=== PATIENT | female | born 1960 | race Caucasian/White ===

== ENCOUNTER 2019-12-06 15:04 | Outpatient (CLI) | payer OTHER, SELFPAY ==
--- NOTE | ~2019-12-06 | MM_ITS ---
EXAMINATION: MM screening anshu BI w tera HISTORY: Screening mammogram TECHNIQUE: Craniocaudal and mediolateral oblique 3-D tomosynthesis images were obtained and synthetic 2-D images were generated. CAD analysis was submitted and interpreted. COMPARISON: Comparison to multiple prior studies sequentially, with oldest reviewed study dated 04/2012. BREAST PARENCHYMAL COMPOSITION: The breasts are heterogeneously dense, which may obscure small masses . FINDINGS: The right breast is stable without evidence for malignancy. There are punctate clustered ca lcifications in the medial aspect of the left breast on CC view. IMPRESSION: 1. Punctate clustered left breast calcifications medially. 2. Magnification views are recommended. BI-RADS Category 0: Incomplete: Needs additional imaging evaluation. Reviewed, dictated and finalized at location A. SMAKER OR TAILOR
== END 2019-12-06 15:05 | disposition home or self-care (01) ==
PROVIDERS: PCP Family Medicine; Visit Provider Obstetrics & Gynecology
DX: Z12.31 Encounter for screening mammogram for malignant neoplasm of breast (principal); R92.8 Other abnormal and inconclusive findings on diagnostic imaging of breast
CPT/HCPCS: 77063; 77067

== ENCOUNTER 2019-12-30 11:50 | Outpatient (CLI) | payer OTHER, SELFPAY ==
--- NOTE | ~2019-12-30 | MM_ITS ---
EXAMINATION: MM diagnostic mammo unilat LT HISTORY: Follow-up left breast calcifications TECHNIQUE: Additional 3-D tomosynthesis images of the left breast were performed and synthetic 2-D im ages were generated. CAD analysis was submitted and interpreted. COMPARISON: 12/06/2019 FINDINGS: Breast composed of scattered areas of fibroglandular density. There are punctate calcificat ions of the left breast which are likely benign. No suspicious cluster of calcifications to suggest m alignancy. No suspicious masses or architectural distortion. IMPRESSION: 1. Probable benign left breast calcifications. 2. Recommend 6 month follow-up diagnostic left mammogram. BI-RADS category 3, probably benign findings. Reviewed, dictated and finalized at location A.
== END 2019-12-30 11:51 | disposition home or self-care (01) ==
LOC: ANHIMG 11:52
PROVIDERS: PCP Family Medicine; Visit Provider Obstetrics & Gynecology
DX: R92.8 Other abnormal and inconclusive findings on diagnostic imaging of breast (principal)
CPT/HCPCS: 77065

== ENCOUNTER 2020-10-23 12:17 | Outpatient (CLI) | payer OTHER, SELFPAY ==
--- NOTE | ~2020-10-23 | MM_ITS ---
EXAMINATION: MM diagnostic anshu BI w tera HISTORY: Follow-up left breast calcifications TECHNIQUE: Additional 3-D tomosynthesis images of the breasts were performed and synthetic 2-D images were generated. CAD analysis was submitted and interpreted. COMPARISON: Comparison to multiple prior studies sequentially, with oldest reviewed study dated 10/23. BREAST PARENCHYMAL COMPOSITION: The breasts are heterogenously dense, which may obscure small masses. FINDINGS: There are punctate clustered calcifications in the outer aspect of both breasts which have a monomorphic benign appearance. No significant interval change. No new masses, calcifications or arc hitectural distortion to suggest malignancy. IMPRESSION: 1. No evidence for malignancy in either breast. Benign breast calcifications. 2. Routine yearly screening mammogram and regular clinical breast examination are recommended. BI-RADS Category 2: Benign finding(s). Reviewed, dictated and finalized at location A. P MACHINE OPERATOR IMPRESSION: 1. No evidence for malignancy in either breast. Benign breast calcifications. 2. Routine yearly screening mammogram and regular clinical breast examination a re recommended. BI-RADS Category 2: Benign finding(s).
== END 2020-10-23 12:18 | disposition home or self-care (01) ==
LOC: ANHIMG 12:19
PROVIDERS: PCP Family Medicine; Visit Provider Obstetrics & Gynecology
DX: R92.8 Other abnormal and inconclusive findings on diagnostic imaging of breast (principal)
CPT/HCPCS: 77062; 77066; G0279

== ENCOUNTER → 2021-11-30 14:47 | Outpatient (CLI) | payer SELFPAY ==
--- NOTE | ~2021-11-30 | XR_ITS ---
XR chest 2V DATE: 11/30/2021 15:08 INDICATION: Chest pain TECHNIQUE: 2 views COMPARISON: None FINDINGS: Normal heart size. No hilar or mediastinal enlargement. No pulmonary infiltrate or consolid ation, pleural effusion or pulmonary vascular congestion or pneumothorax. No right breast shadow is visualized; recommend clinical correlation for possible mastectomy. There is prominent dextroscoliosis of the thoracic spine and levoscoliosis of the lumbar spine. Diffu se osteopenia. IMPRESSION: No active cardiopulmonary disease Reviewed, dictated and finalized at location B. MATIC DRILL OPERATOR
== END ==
PROVIDERS: PCP Family Medicine; Visit Provider Physician Assistant
DX: R07.9 Chest pain, unspecified (principal); R53.83 Other fatigue
CPT/HCPCS: 71046

== ENCOUNTER 2021-12-17 09:34 | Outpatient (CLI) | payer SELFPAY ==
--- NOTE | 2021-12-17 09:46 | EST_ITS ---
Patient Info Name: Cristal Montes Age: 61 years : 1960 Gender: Female Ht: 66 in Wt: 135 lbs BSA: 1.69 m2 Technical Quality: Good Exam Date: 12/17/2021 9:56 AM Exam Location: [facility] Patient Status: Outpatient Admit Date: 12/17/2021 Staff Ordering Physician: Remy Harman PA-C Molded Frames Assembler: Karla Anna RDCS Attending Provider: Referring Physician: Kimani JACOB; Exercise Technologist: Halina Bryant CT Exercise Physician: Jose Manuel DO Exam Type: CA stress echo Study Info Indications R07.9 - Chest pain, unspecified Treadmill exercise stress echocardiogram is performed. Summary 1. 1. Negative Meet exercise stress test for ischemic ST changes by ECG criteria. 2. 2. Good functional capacity, achieving 10 METs of workload. 3. 3. Appropriate HR response to exercise. 4. 4. Appropriate HR recovery at 1 minute post exercise. 5. 5. Negative stress echocardiogram for ischemia by wall motion analysis. 6. 6. Patient informed of the above results. Stress Echo Findings Left Ventricle Appropriate increase in LV endocardial thickening with systole. Appropriate augmentation of contractility with systole. No wall motion abnormality. Left Ventricle Normal LV systolic function, no wall motion abnormality. Protocol: Meet Stress ECG Details Stage: REST Duration (min): 1 min : 10 sec Speed (mph): 0.0 Grade (%): 0 HR (bpm): 65 SBP (mmHg): 110 DBP (mmHg): 73 METS: --- Stage: REST Duration (min): 8 min : 57 sec Speed (mph): 0.0 Grade (%): 0 HR (bpm): 66 SBP (mmHg): 110 DBP (mmHg): 73 METS: --- Stage: STAGE 1 Duration (min): 1 min : 0 sec Speed (mph): 1.7 Grade (%): 10 HR (bpm): 97 SBP (mmHg): 110 DBP (mmHg): 73 METS: --- Stage: STAGE 1 Duration (min): 2 min : 0 sec Speed (mph): 1.7 Grade (%): 10 HR (bpm): 103 SBP (mmHg): 110 DBP (mmHg): 73 METS: --- Stage: STAGE 1 Duration (min): 3 min : 0 sec Speed (mph): 1.7 Grade (%): 10 HR (bpm): 103 SBP (mmHg): 110 DBP (mmHg): 55 METS: --- Stage: STAGE 2 Duration (min): 1 min : 0 sec Speed (mph): 2.5 Grade (%): 12 HR (bpm): 111 SBP (mmHg): 110 DBP (mmHg): 55 METS: --- Stage: STAGE 2 Duration (min): 2 min : 0 sec Speed (mph): 2.5 Grade (%): 12 HR (bpm): 114 SBP (mmHg): 116 DBP (mmHg): 59 METS: --- Stage: STAGE 2 Duration (min): 3 min : 0 sec Speed (mph): 2.5 Grade (%): 12 HR (bpm): 115 SBP (mmHg): 116 DBP (mmHg): 59 METS: --- Stage: STAGE 3 Duration (min): 1 min : 0 sec Speed (mph): 3.4 Grade (%): 14 HR (bpm): 129 SBP (mmHg): 112 DBP (mmHg): 54 METS: --- Stage: STAGE 3 Duration (min): 2 min : 0 sec Speed (mph): 3.4 Grade (%): 14 HR (bpm): 132 SBP (mmHg): 112 DBP (mmHg): 54 METS: --- Stage: STAGE 3 Duration (min): 3 min : 0 sec Speed (mph): 3.4 Grad
== END 2021-12-17 09:35 | disposition home or self-care (01) ==
PROVIDERS: PCP Family Medicine; Visit Provider Physician Assistant
DX: R07.9 Chest pain, unspecified (principal)
CPT/HCPCS: 93351

== ENCOUNTER 2022-01-03 10:52 | Outpatient (CLI) | payer OTHER, SELFPAY ==
--- NOTE | ~2022-01-03 | MM_ITS ---
EXAMINATION: MM screening anshu BI w tera HISTORY: Screening mammogram TECHNIQUE: Craniocaudal and mediolateral oblique 3-D tomosynthesis images were obtained and synthetic 2-D images were generated. CAD analysis was submitted and interpreted. COMPARISON: 10/23/2020 bilateral screening mammogram 12/30/2019 diagnostic left mammogram 12/02/2019, 08/07/2018 bilateral screening mammogram examinations BREAST PARENCHYMAL COMPOSITION: The breasts are heterogeneously dense, which may obscure small masses . FINDINGS: There is no evidence of suspicious mass, calcification, or architectural distortion to sugg est malignancy in either breast. There has been no suspicious interval change. IMPRESSION: 1. No mammographic evidence of malignancy. 2. Recommend routine screening mammography in one year. BI-RADS Category 1: Negative Reviewed, dictated and finalized at location C.
== END 2022-01-03 10:53 | disposition home or self-care (01) ==
PROVIDERS: PCP Family Medicine; Visit Provider Obstetrics & Gynecology
DX: Z12.31 Encounter for screening mammogram for malignant neoplasm of breast (principal)
CPT/HCPCS: 77063; 77067

== ENCOUNTER → 2022-06-25 10:34 | Outpatient (CLI) | payer SELFPAY ==
--- NOTE | ~2022-06-25 | XR_ITS ---
EXAMINATION: XR scoliosis survey DATE: 06/25/2022 11:24 INDICATION: Scoliosis. TECHNIQUE: Frontal and lateral views of the entire spine standing were obtained. COMPARISON: Chest 2 views 11/30/2021 FINDINGS: There are 12 pairs of ribs. There are 5 nonrib-bearing lumbar segments. There is 7 degrees dextrocurvature from C3 to C7 by the Cruz method. There is 23 degrees levoscoliosis from C7 to T6. Th ere is 34 degrees dextroscoliosis from T6 to T10. There is 37 degrees levoscoliosis from T10 to L4. T here is 2 mm anterolisthesis of C4 on C5 and 2 mm retrolisthesis of C5 on C6. There is severe cervica l spondylosis, moderate thoracic spondylosis, and severe lumbar spondylosis. IMPRESSION: 1. Scoliosis. 2. Severe spondylosis. Reviewed, dictated and finalized at location A.
== END ==
PROVIDERS: PCP Internal Medicine
DX: M41.9 Scoliosis, unspecified (principal); M47.896 Other spondylosis, lumbar region
CPT/HCPCS: 72082

== ENCOUNTER 2022-07-04 16:31 | Outpatient (CLI) | payer SELFPAY ==
--- NOTE | ~2022-07-04 | DEXA_ITS ---
Bone Density Report Name: CARLEE AHN Age: 61 Sex: Female Ethnicity: Benjie Date of : 1960 Indication: postmenopausal; screening for osteoporosis; height loss; Referring Provider: REYNA MARTINEZ Study: Bone densitometry was performed. Exam Date: July 04, 2022 Accession number: [id number] Bone Density: Region BMD T-score Z-score Classification AP Spine(L1-L4) 0.828 -2.0 -0.5 Osteopenia Femoral Neck (Left) 0.721 -1.2 0.2 Osteopenia Total Hip (Left) 0.806 -1.1 -0.1 Osteopenia Femoral Neck (Right) 0.703 -1.3 0.0 Osteopenia Total Hip (Right) 0.829 -0.9 0.1 Normal Total Hip Mean 0.818 -1.0 0.0 Normal World Health Organization criteria for BMD impression classify patients as: Normal (T-score at or above -1.0), Osteopenia (T-score between -1.0 and -2.5), or Osteoporosis (T-score at or below -2.5). 10-year Fracture Risk(1): Major Osteoporotic Fracture 7.6% Hip Fracture 0.6% Reported Risk Factors: [place] (), Neck BMD=0.703, BMI=24.0 (1) FRAX(R) Version 3.08. Fracture probability calculated for an untreated patient. Fracture probability may be lower if the patient has received treatment. Clinical Information Provided by Patient: Has used the following medications: Vitamin D, Calcium Patient maximum height was 67 Menopause Age: 50 Drinks caffeinated beverages Onset of menses at age 13 Number of children 2 Impression: The patient has low bone mass, based on the Total Spine T-score. The patient has an estimated ten-year risk of hip fracture of 0.6% and an estimated ten-year risk of major fracture of 7.6%, based on the WHO FRAX algorithm. Discussion: BONE DENSITY IS LOW AT ONE OR MORE SKELETAL SITES. This patient's lowest T-score is low at one or more skeletal sites. It meets the World Health Organization's (WHO) criteria for ?low bone mass? (T-score between -1.0 and -2.5). The patient's 10-year risk of fracture as calculated by FRAX is less than the threshold where pharmacological therapy is recommended by the National Osteoporosis Foundation (NOF). However, all treatment decisions require clinical judgment and consideration of individual patient factors, including patient preferences, comorbidities, previous drug use, risk factors not captured in the FRAX model (e.g., frailty, falls, vitamin D deficiency, increased bone turnover, interval significant decline in bone density) and possible under or overestimation of fracture risk by FRAX. The patient should follow a healthful lifestyle (good nutrition with adequate calcium and vitamin D, and appropriate weight-bearing exercise). Follow-Up: Consider repeating this study in 2 to 3 years to reassess this patient's status, or sooner if there is some new clinical indication. Reported by: [facility] on 07/04/2022 4:59:
== END 2022-07-04 16:32 | disposition home or self-care (01) ==
PROVIDERS: PCP Internal Medicine; Visit Provider Internal Medicine
DX: M85.88 Other specified disorders of bone density and structure, other site (principal); M85.852 Other specified disorders of bone density and structure, left thigh; M85.851 Other specified disorders of bone density and structure, right thigh
CPT/HCPCS: 77080

== ENCOUNTER 2023-01-16 12:17 | Outpatient (CLI) | payer OTHER, SELFPAY ==
--- NOTE | ~2023-01-16 | MMUS_ITS ---
EXAMINATION: MM diagnostic anshu BI w tera, US breast LT limited HISTORY: Left arm hip pain TECHNIQUE: Additional 3-D tomosynthesis images of the breasts were performed and synthetic 2-D images were generated. CAD analysis was submitted and interpreted. High resolution Limited left breast ultr asound was performed. COMPARISON: No prior studies for comparison. BREAST PARENCHYMAL COMPOSITION: The breasts are heterogeneously dense, which may obscure small masses FINDINGS: MAMMOGRAPHIC FINDINGS: There are no suspicious masses, calcifications or architectural distortion in either breast to sugges t malignancy. ULTRASOUND: Limited left breast ultrasound: Normal heterogeneous echotexture without focal solid or cystic mass. IMPRESSION: 1. No evidence for malignancy in either breast. 2. Routine yearly screening mammogram and regular clinical breast examination are recommended. BI-RADS Category 1: Negative Reviewed, dictated and finalized at location A. IMPRESSION: 1. No evidence for malignancy in either breast. 2. Routine yearly screening mammogram and regular clinical breast examination a re recommended. BI-RADS Category 1: Negative
== END 2023-01-16 12:18 | disposition home or self-care (01) ==
PROVIDERS: PCP Internal Medicine; Visit Provider Nurse Practitioner
DX: R59.0 Localized enlarged lymph nodes (principal)
CPT/HCPCS: 76642; 77062; 77066; G0279

== ENCOUNTER → 2023-04-22 12:49 | Outpatient (CLI) | payer SELFPAY ==
--- NOTE | ~2023-04-22 | US_ITS ---
EXAMINATION: US pelvic complete w TV DATE: 04/22/2023 13:15 INDICATION: Abdominal pain and bloating TECHNIQUE: Multiple transabdominal and endovaginal sonographic images of the pelvis were obtained. COMPARISON: 03/06/2018 FINDINGS: The uterus measures 5.8 x 2.1 x 4.0 cm. There is a 1.6 x 1.8 x 1.5 cm isoechoic mass of the anterior myometrium abutting the endometrial canal, consistent with an intramural fibroid. A 0.9 x 0 .8 x 0.9 cm mass of the uterine fundus with similar sonographic features also likely represents an in tramural fibroid. The endometrial complex measures 4 mm. The right ovary measures 1.8 x 1.0 x 1.6 cm. The left ovary measures 2.5 x 1.1 x 1.2 cm. There is normal vascular flow in the ovaries. There is n o free fluid in the pelvis. IMPRESSION: 1. No sonographic correlate for the patient's symptoms. Small uterine fibroids. Reviewed, dictated and finalized at location L.
== END ==
PROVIDERS: PCP Internal Medicine; Visit Provider Internal Medicine
DX: R14.0 Abdominal distension (gaseous) (principal); D25.9 Leiomyoma of uterus, unspecified
CPT/HCPCS: 76830; 76856

== ENCOUNTER 2024-04-14 13:24 | Outpatient (CLI) | payer OTHER, SELFPAY ==
--- NOTE | ~2024-04-14 | MM_ITS ---
EXAMINATION: MM screening anshu BI w tera HISTORY: Screening mammogram TECHNIQUE: Craniocaudal and mediolateral oblique 3-D tomosynthesis images were obtained and synthetic 2-D images were generated. CAD analysis was submitted and interpreted. COMPARISON: 01/16/2023, 01/03/2022, 10/23/2020 BREAST PARENCHYMAL COMPOSITION:Dense: The breasts are heterogeneously dense, which may obscure small masses. FINDINGS: No suspicious mass, calcification, or architectural distortion are identified in either ari ast to suggest malignancy. There has been no suspicious interval change. IMPRESSION: No mammographic evidence of malignancy. Recommend routine screening mammography in one year. BI-RADS Category 1: Negative Reviewed, dictated and finalized at location .
== END 2024-04-14 13:25 | disposition home or self-care (01) ==
LOC: ANHIMG 13:25
PROVIDERS: PCP Internal Medicine; Visit Provider Nurse Practitioner
DX: Z12.31 Encounter for screening mammogram for malignant neoplasm of breast (principal)
CPT/HCPCS: 77063; 77067

== ENCOUNTER 2024-11-25 13:58 | Outpatient (CLI) | payer SELFPAY ==
--- NOTE | ~2024-11-25 | US_ITS ---
EXAMINATION: US thyroid DATE: 11/25/2024 14:25 INDICATION: Thyroid nodule. TECHNIQUE: Multiple ultrasound images of the thyroid were obtained. COMPARISON: None. FINDINGS: The right thyroid lobe measures 4.6 x 1.7 x 1.4 cm. The left thyroid lobe measures 3.8 x 1.7 x 1.7 c m. The thyroid demonstrates heterogeneous echogenicity. Vascularity is increased. In the left thyroi d lobe, there is a 14 mm solid, hypoechoic, wider than tall nodule with smooth margin without echogen ic foci (TI-RADS TR4). IMPRESSION: 1. Thyroid nodule. Thyroid ultrasound is recommended in one year. 2. Heterogeneous, hypervascular thyroid, likely chronic lymphocytic (Jessika) thyroiditis. Reviewed, dictated and finalized at location A. [facility]
== END 2024-11-25 13:59 | disposition home or self-care (01) ==
PROVIDERS: PCP Internal Medicine
DX: E04.1 Nontoxic single thyroid nodule (principal); E07.89 Other specified disorders of thyroid
CPT/HCPCS: 76536

== ENCOUNTER 2025-04-26 14:28 | Outpatient (CLI) | payer OTHER, SELFPAY ==
--- NOTE | ~2025-04-26 | MM_ITS ---
EXAMINATION: MM screening anshu BI w tera HISTORY: Screening TECHNIQUE: Craniocaudal and mediolateral oblique 3-D tomosynthesis images were obtained and synthetic 2-D images were generated. CAD analysis was submitted and interpreted. COMPARISON: Comparison to multiple prior studies sequentially, with oldest reviewed study dated 12/06. BREAST PARENCHYMAL COMPOSITION: Dense: The breasts are heterogeneously dense, which may obscure small masses FINDINGS: There is no evidence of suspicious mass, calcification, or architectural distortion to sugg est malignancy in either breast. There has been no suspicious interval change. IMPRESSION: 1. No mammographic evidence of malignancy. 2. Recommend routine screening mammography in one year. BI-RADS Category 1: Negative Reviewed, dictated and finalized at location B.
--- OUTSIDE RECORDS SUMMARY | 2025-04-26 14:33 | XMS_ITS | Clinical Summary ---
Author Organization [facility] Healthcare Address [address] [place] [address] Care Team Providers Care Executive Director Of Nursing Name Role Phone Neal Galarza NP Unavailable [phone] Olivier Daniels MD Primary Care Provider [phone] Allergies Active Allergy Reactions Criticality Noted Date Comments Cat Hair Standardized Allergenic Extract Swelling Medium 06/23/2023 Codeine Dizziness,Other (See comments),Stomach upset Low 01/02/2018 GI upset Stomach/GI Upset Dizzy, nausea Iodinated Contrast Media Anaphylaxis,Hives,Pa lpitations High 03/29/2011 Rapid heart rate Pt. States she broke out in hives and was unable to breathe when had contrast for CT Scan Hives Medications ascorbic acid, vitamin C, (Vitamin C) 500 mg CR tabletIndicatio ns:supplement Take 1 tablet (500 mg total) by mouth 2 (two) times a day Restart on 05/07 when able to take pills whole 4 Active cholecalciferol (VITAMIN D-3) 50,000 unit capsuleIndicati ons:Vitamin D Deficiency Take 1 capsule (50,000 Units total) by mouth once a week Restart on 05/07 when able to take pills wholeSundays 4 Active magnesium gluconate 200 mg tabletIndicatio ns:hypomagnesem ia Take 1 tablet (200 mg total) by mouth daily Restart on 05/07 when able to take pills whole 4 Active multivitamin with minerals tabletIndicatio ns:Mineral Deficiency Prevention,Rachelle min Deficiency Prevention Take 1 tablet by mouth software engineering associate manager before breakfast Restart on 05/07 when able to take pills whole 4 Active omega-3 fatty acids-fish oil 300-1,000 mg capsuleIndicati ons:hypertrigly ceridemia Take 1 capsule (1,000 mg total) by mouth software engineering associate manager before breakfast Restart on 05/07 when able to take pills whole 4 Active turmeric root extract 500 mg capsuleIndicati ons:supplement Take 1 tablet by mouth software engineering associate manager before breakfast Restart on 05/07 when able to take pills whole 4 Active Active Problems Problem Noted Date Diagnosed Date S/P laparoscopic fundoplication 12/12/2024 Assessment & Plan (12/12/2024 9:56 AM PATHOLOGY LABORATORY DIRECTOR): No breatkhrought sypmtoms on fundoplication. No dysphagia. Dyspnea on exertion 12/12/2024 Assessment & Plan (12/12/2024 9:56 AM PATHOLOGY LABORATORY DIRECTOR): Revuiewed multifacotrial etiology and will montior repsnose. No chest pains/pressures/palptiations. Encounter for medical examination to establish c are 12/12/2024 Assessment & Plan (12/12/2024 9:57 AM PATHOLOGY LABORATORY DIRECTOR): Focus of exam is to estalbihs care. Congratualte on active, healthy fifesltye. Reivewed sun/skin cancer screening. Reivewed immunizioatns, reivewed colon/breast cancer screenign recommnednations. Hiatal hernia with GERD 02/10/2024 Hiatal hernia 08/21/2023 Dysfunction of eustachian tube 06/23/2023 Contusion 06/23/2023 Abrasion 06/23/2023 Eczema 06/23/2023 Fatigue 06/23/2023 Intolerant of cold 06/23/2023 Weight gain 06/23/2023 Personal history of colonic polyps 04/22/2023 Angina pectoris 01/29/2018 Gastroesophageal reflux disease 01/29/2018 Assessment & Plan (12/12/2024 9:56 AM PATHOLOGY LABORATORY DIRECTOR): Stable on supportive and alternative medication to control GI syopmtomatology. Immunizations Immunization Administration Dates Next Due Influenza, Unspecified 11/30/2024(Deferr ed: Patient Refused),10/13/2023(Deferred: Patient Refused) Sars-CoV-2, Unspecified 07/26/2021,01/19/2021, Tdap 12/21/2018,10/12/2018 ZOSTER Recombinant 08/15/2021,05/10/2021 Zoster, unspecified 09/11/2021,07/12/2021 Surgical History Surgery Date Site/Laterality Comments ENDOMETRIAL ABLATION TONSILLECTOMY COLONOSCOPY 02/10/2018 - 03/12/2018 UPPER GASTROINTESTINAL ENDOSCOPY 10/13/2017 - 10/12/2018 ADENOIDECTOMY Medical History Medical History Date Comments GERD (gastroesophageal reflux disease) Angina pectoris Psoriasis (a type of skin inflammation) Hiatal hernia Family History Medical History Relation Name Comments Diabetes Sister Breanna Relation Name Status Comments Sister Breanna Social History Tobacco Use Types Packs/Day Years Used Date Smoking Tobacco: Never Smokeless Tobacco: Never Tobacco Cessation:Counseling Given: Not Answered AUDIT-C Answer Date Recorded Q1: How often do you have a drink containing alc ohol? 2-3 times a week 04/29/2024 Q2: How many drinks containi ng alcohol do you have on a typical day when you are drinking? 1 or 2 04/29/2024 Q3: How often do you have si x or more drinks on one occasion? Never 04/29/2024 PHQ-2 Answer Date Recorded PHQ-2 Total Score (If total score is 3 or more points, staff should administer the PHQ-9) 0 11/30/2024 Personal Safety Answer Date Recorded Have you ever been in or are you currently in a harmful physical or emotional relationship or is someone making you feel afraid or unsafe? Denies 04/29/2024 Comments No Sex and Gender Information Value Date Recorded Sex Assigned at Not on file Legal Sex Female 12:18 PM PATHOLOGY LABORATORY DIRECTOR Gender Identity Not on file Sexual Orientation Not on file Obstetrics History Last Filed Vital Signs Vital Sign Reading Time Taken Comments Blood Pressure 118/74 12/21/2024 4:17 PM CDT Pulse 66 12/21/2024 4:17 PM CDT Temperature 36.6 C (97.8 F) 12/21/2024 4:17 PM CDT Respiratory Rate 17 12/21/2024 4:17 PM CDT Oxygen Saturation 98% 12/21/2024 4:17 PM CDT Inhaled Oxygen Concentration - - Weight 72.1 kg (159 lb) 12/21/2024 4:17 PM CDT Height 167.6 cm (5' 6) 12/21/2024 4:17 PM CDT Body Mass Index 25.66 12/21/2024 4:17 PM CDT Plan of Treatment Health Maintenance Due Date Last Done Comments Cervical Cancer Screening 1960 Hepatitis C Screening 1960 Hepatitis B Screening 1979 Regular Well Visit/Exam 18-64 1979 Breast Cancer Screening-Mammogram 01/03/2023 01/03/2022, 10/23/2020 Covid-19 Vaccine ( season) 2024 08/06/2022, 07/27/2021, 07/26/2021, Additional history exists Influenza Vaccine (#1) 2025 Depression Screening 11/30/2025 11/30/2024 Colon Cancer Screening-Colonoscopy 06/24/2028 06/24/2023, 02/18/2018 DTaP/Tdap/Td Vaccine (3 - Td or Tdap) 12/21/2028 12/21/2018, 10/12/2018 Zoster Vaccine Completed 09/11/2021, 1112/2020, 07/12/2021, Additional history exists Colon Cancer Screening-CT Colonography Discontinued 06/24/2023, 02/18/2018 Colon Cancer Screening-DNA Stool Discontinued 06/24/2023, 02/18/2018 Colon Cancer Screening-FIT Discontinued 06/24/2023, Colon Cancer Screening-Sigmoidoscopy Discontinued 06/24/2023, 02/18/2018 Pneumococcal vaccine <65 Aged Out No longer eligible based on patient's age to complete this topic Procedures Procedure Name Priority Date/Time Associated Diagnosis Comments COLONOSCOPY 06/24/2023 7:45 AM CDT HM MAMMOGRAPHY Routine 01/03/2022 from Last 3 Months or Most Recently Relevant to Health Maintenance Results * COLONOSCOPY (06/24/2023 7:45 AM CDT) Anatomical Region Laterality Modality Other Narrative Procedure Note Henrietta Farley MD - 06/24/2023 7:45 AM CDT [facility] Patient Name: Cristal Montes Procedure Date: 06/24/2023 7:45 AM Date of : 1960 Admit Type: Outpatient Age: 62 Gender: Female Attending MD: Henrietta Farley M.D. Room: [facility] 1 Note Status: Screed Person Override Patient Profile: This is a 62 year old female. History of polypsback in 2018. No family history of colon cancer per Procedure: Colonoscopy Indications: High risk colon cancer surveillance: Personalhistory of colonic polyps, Last colonoscopy: February 2018 Referring MD: Ramya Regan M.D., Heidi Waldrop M.D. Providers: Henrietta Farley M.D. Impression: - One diverticulum in the ascending colon. - Normal colonoscopy otherwise. - Internal hemorrhoids. - No specimens collected. Recommendation: - Repeat colonoscopy in 5 years for screeningpurposes. - Continue present medications. Medicines: Monitored Anesthesia Care Complications: No immediate complications. Estimated Blood Loss: Estimated blood loss: none. Procedure: Pre-Anesthesia Assessment: - Prior to the procedure, a History and Physicalwas performed, and patient medications and allergieswere reviewed. The patient's tolerance of previous anesthesia was also reviewed. The risks andbenefits of the procedure and the sedation options and risks were discussed with the patient. All questions were answered, and informed consent was obtained. Prior Anticoagulants: The patient has taken noanticoagulant or antiplatelet agents. ASA Grade Assessment: II -A patient with mild systemic disease. After reviewing the risks and benefits, the patient was deemed in satisfactory condition to undergo the procedure. The benefits, risks and alternatives of theprocedure and sedation were discussed and informed consentwas obtained. All questions were answered. Please referto the signed informed consent document in the medical record. The bowel preparation used was Miralax and bisacodyl tablets via split dose instruction. The scope was passed under direct vision. The Pediatric Colonoscope [id number]-[id number] was introducedthrough the anus and advanced to the the cecum, identifiedby appendiceal orifice and ileocecal valve. Thequality of the bowel preparation was excellent. Bowel prepwas administered using a split dose. Findings: The perianal and digital rectal examinations were normal. The cecum appeared normal. A single medium-mouthed diverticulum was found in the ascendingcolon. The rectum, sigmoid colon, descending colon and transverse colon appeared normal. Internal hemorrhoids were found during retroflexion. The hemorrhoids were small. Electronically signed by Henrietta Farley M.D. Henrietta Farley M.D. 06/24/2023 9:01:03 AM Number of Addenda: 0 Note Initiated On: 06/24/2023 7:45 AM Procedure Code(s): --- Professional --- 87965, Colonoscopy, flexible; diagnostic, including collection of specimen(s) by brushing or washing, when performed (separateprocedure) Diagnosis Code(s): --- Professional --- Z86.010, Personal history of colonic polyps K64.8, Other hemorrhoids K57.30, Diverticulosis of large intestine without perforation orabscess without bleeding CPT copyright 2020 [employer]. All rights reserved. The codes documented in this report are preliminary and upon enterprise integration architect reviewmay be revised to meet current compliance requirements. Recognized by the [employer] for promoting quality in endoscopy Henrietta Farley MD ENDOSCOPY PROCEDURES Edite d Result - Final * HM MAMMOGRAPHY (01/03/2022) Historical Provider HEALTH MAINTENANCE Final Result from Last 3 Months or Most Recently Relevant to Health Maintenance Advance Directives For more information, please contact: [phone] * Full Code (Latest Code Status on File) Date Activated Date Inactivated Comments 04/29/2024 6:35 PM 04/30/2024 8:33 PM * Full Code Date Activated Date Inactivated Comments 12/16/2023 11:33 AM 12/16/2023 7:08 PM * Full Code Date Activated Date Inactivated Comments 12/16/2023 11:33 AM 12/16/2023 11:33 AM * Full Code Date Activated Date Inactivated Comments 06/24/2023 7:44 AM 06/24/2023 1:54 PM * Full Code Date Activated Date Inactivated Comments 06/24/2023 7:44 AM 06/24/2023 7:44 AM Care Teams Executive Director Of Nursing Relationship Specialty Start Date End Date Olivier Daniels MD Maria [place] [address] PCP - General Family Medicine 11/30/24 Neal Galarza NP [address] [place] [address] [place] [address] Nurse Practitioner Gastroenterology 01/21/24
--- OUTSIDE RECORDS SUMMARY | 2025-04-26 14:33 | XMS_ITS | Data Portability ---
Author Organization [facility] Address [address] [place] [address] Care Team Providers Care Associate Marketing Manager Name Role Phone MICHELLEREYNA Primary Care Provider [phone] Assessment Encounter Date Assessment Date Assessment LastModified by Organization Details LastModified Time 01/07/2024 01/07/2024 Annual gynecological exam performed. Patient will come back in a year unless there are new symptoms. Not available 01/07/2024 10:05:56 Plan of Treatment Reminders Order Date Submit Date Provider Last Modified By Organization Details Last Modified Time Details Appointments None recorded . Lab None recorded . Referral None recorded . Procedures None recorded . Surgeries None recorded . Imaging MAMMO, screenin g, digital, bilatera l [address] (Mammography) , [address], [place], [address], 5 10:55:15 DEXA, axial skeleton + vertebra l fracture assessme nt 2023 024 [facility] (Mammography) , [address], [place], [address], 4 05:01:04 MAMMO, screenin g, digital, bilatera l 2023 024 [facility] (Mammography) , [address], [place], [address], 4 16:26:02 MAMMO, diagnost ic, digital, bilatera l 2022 023 [facility] (Mammography) , [address], [place], [address], 3 12:27:22 US, breast, bilatera l, w/ axilla 2022 023 [facility] (Mammography) , [address], [place], [address], 3 12:27:22 Medication Orders None recorded . Patient TargetsNo targets recorded. Patient InstructionsNo instructions recorded. Reason for Referral None Reported. Results Created Date Observation Date Name Description Value Unit Range Abnormal Flag Note LastModifiedBy Organization Detail LastModifiedTime 01/07/20 24 01/07/2024 IMAGE GUIDE D PAP AND HPV REGAR DLESS image guided Pap, HPV regardless of Pap result SEE RESULT S BELOW CASE REPOR T: Cytol ogy Gynec ologi roscoe Repor t Case: [id number] Autho rizin g Provi kay: Chrissy Harvey, TUSHAR Colle cted: 01/06 1417 Order ing Locat ion: [place] Patho log[facility] Recei douglas: 01/07 0002 First Scree n: Danay De Leon, CT Speci men: Scree dominic Pap - Image d, Cervi x STATE MENT OF ADEQU ACY: Satis facto ry for evalu ation Trans forma tion zone compo nent canno t be defin itive ly ident ified due to the prese nce of atrop hy or other hormo nal jara es FINAL DIAGN OSIS: Negat eduardo for Intra epith elial Lesio n or Aaron rausch (NIL) . Atrop hic kathe harris rn. Elect tom willson zuri d by Danay De Leon, CT on 2023 at 10:29 AM ----- ----- ----- ----- ----- ----- ----- ----- ----- ----- ----- ----- ----- ----- ----- ----- ----- ---- HPV RESUL TS: HPV mRNA E6/E7 : No HPV mRNA Detec nahum NOTE: This high risk HPV mRNA assay detec ts fourt een high- risk HPV types (16, 18, 31, 33, 35, 39, 45, 51, 52, 56, 58, 59, 66, 68) witho ut diffe renti ation . COMME NT: This speci men was revie wed by a Cytot echno logis t and/o r Patho logis t (as indic ated in this repor t) after evalu ation using the Thinp rep Imagi ng Syste m. CL[facility] INFOR MATIO N: Menst rual Statu s: LMP (if appli cable ): Clini roscoe Histo ry/Pr eviou s Pap: Type of Neopl mark (if appli cable ): Signi fican t Clini roscoe Findi ngs: Other Histo ry: Hormo hansel (if appli cable ): PAP EDUCA ASTRID L NOTE: The Pap Test is a scree dominic test with an inher ent false negat eduardo rate. Liqui d-bas ed sampl ing may decre ase, but will not elimi tae, false negat eduardo resul ts. A negat eduardo resul t does not precl ude the prese nce and/o r devel opmen t of disea se, since the prese nce of abnor mal cells in the sampl e depen ds on the locat ion of the lesio n and sampl ing techn ique. Deidra nued regul ar scree dominic is the best metho d of cance r preve ntion . If repor nahum cytol ogic findi ng do not corre late with physi roscoe and/o r histo rical findi ngs, furth er inves tigat ion is recom selene d, as clini rachael dow nted. Not Available [facility] (Lab) [address], [place], [address], 01/09/2024 11:32:32 04/14/20 24 04/14/2024 MAMMO , scree dominic, digit al, bilat eral No observ ation record ed. [facility] [address], [place], [address], 04/14/2024 17:07:59 Result Notes None recorded. Procedures Surgical History Date Name Laterality Status Provider Name and Address Organization Details Recorded Time 05/04/20 repair of diaphragmatic hernia by abdominal approach completed [facility] 01/25/2025 14:12:59 04/14/20 Date of Last Mammogram completed [facility] 01/25/2025 14:10:48 01/07/20 24 Date of Last Pap Smear completed [facility] 01/25/2025 14:10:24 08/19/20 23 completed [facility] 01/07/2024 14:20:29 08/19/20 23 Date of Last Colonoscopy completed [facility] 01/07/2024 14:20:29 Endometrial Ablation completed Alysha Ashish [facility] 12/30/2022 15:15:00 Imaging Results None recorded. Procedure Notes None recorded. Medical Equipment None Reported. Allergies Allergen ID Allergen Name Allergen Category Reaction Reaction Severity Criticality Documentation Date Start Date Code Code System Note Provider Name and Address Organization Details Recorded Time cat dander environme nt Not available Not available Not available 12/30/2022 [id number] [facility] 15:11:12 cigarette smoke environme nt Not available Not available Not available 12/30/2022 75995 DONTAE waldrop [facility] 3 15:11:22 No known drug allergies Medications Name Sig Start Date Stop Date Status Note LastModified by Organization Details LastModified Time esomeprazol e magnesium 40 mg capsule,del ayed release TAKE 1 CAPSULE BY MOUTH DAILY BEFORE BREAKFAST . MAY OPEN CAPSULE AND TAKE IN APPLESAUC E 01/25 completed Not Available Not Available Not Available Young Harris 3 active Not Available Not Avail able Not Available [facility] n active Not Available Not Available Not Available Vitals Date Recorded Body height Body mass index (BMI) Body weight Systolic And Diastolic Provider Name and Address Organization Details Last Updated DateTime 12/30/2022 167.64 cm 24 kg/m2 67014.26 g 116/72 mm[Hg] Alysha Hinojosa [facility] 12/30/2022 15:10:45 Date Recorded Body height Body mass index (BMI) Body weight Systolic And Diastolic Provider Name and Address Organization Details Last Updated DateTime 01/07/2024 167.64 cm 24.7 kg/m2 37070.63 g 125/78 mm[Hg] Nohemi Valle [facility] 01/07/2024 14:20:21 Date Recorded Body height Body mass index (BMI) Body weight Systolic And Diastolic Provider Name and Address Organization Details Last Updated DateTime 01/25/2025 167.64 cm 25 kg/m2 34383.82 g 110/70 mm[Hg] Halie Simsney [facility] 01/25/2025 14:08:48 Social History Question Answer Notes LastModified by Organizat ion Details LastModified Time Tobacco Smoking Status Never Smoker Alysha Hinojosa [facility] 12/30/2022 15:14:35 Do You Have An Advance Directive? Yes [email or web address] Information n ot available 01/25/2025 How Many Years Have You Consumed Alcohol? 40 Information not available 01/07/2024 Are You Blind Or Do You Have Difficulty Seeing? No [email or web address] Information n ot available 12/30/2022 What Is Your Level Of Caffeine Consumption? Moderate Information not available 01/07/2024 How Much Tobacco Do You Chew? None Information not available 01/07/2024 In The 14 Days Before Symptom Onset, Have You Had Close Contact With A Laboratory-confirm ed COVID-19 While That Case Was Ill? No Information n ot available 01/07/2024 In The 14 Days Before Symptom Onset, Have You Had Close Contact With A Person Who Is Under Investigation For COVID-19 While That Person Was Ill? No Information not available 01/07/2024 Have You Been To An Area Known To Be High Risk For COVID-19? No Information not available 01/07/2024 Are You Deaf Or Do You Have Serious Difficulty Hearing? No Information not available 12/30/2022 What Type Of Diet Are You Following? REGULAR Information n ot available 12/30/2022 What Is The Highest Grade Or Level Of School You Have Completed Or The Highest Degree You Have Received? [id number] Information not available 01/07/2024 Are There Any Guns Present In Your Home? Yes Information not available 01/07/2024 Do You Use Protection During Sex? No Information not available 01/07/2024 Do You Use Your Seat Belt Or Car Seat Routinely? Yes Information not available 01/07/2024 Do You Have Smoke And Carbon Monoxide Detectors In Your Home? Yes Information not available 01/07/2024 How Much Tobacco Do You Smoke? No Information not available 01/07/2024 Do You Use Sunscreen Routinely? Yes Information not available 01/07/2024 Have You Used IV Drugs? No Information not available 01/07/2024 Do You Have Difficulty Walking Or Climbing Stairs? No Information not available 12/30/2022 Sex: Unknown Functional Status Question Answer Note LastModified by Organizat ion Details LastModified Time Do you use any illicit or recreational drugs? No Information not available 01/07/2024 What is your level of alcohol consumption? Occasional Information not available 12/30/2022 Are you able to walk? YESWOREST Information not available 12/30/2022 Are you able to care for yourself? Yes Information n ot available 12/30/2022 What is your occupation? Retired Information not available 01/07/2024 Do you have difficulty dressing or bathing? No Information not available 12/30/2022 What is your exercise level? Occasional Information not available 12/30/2022 Mental Status Question Answer Note LastModified by Organization D etails LastModified Time Do you feel stressed (tense, restless, nervous, or anxious, or unable to sleep at night)? [id number] [place] [address] Information not available 01/07/2024 Family History Relationship Description Onset Age of this Age Resolved Age Notes LastModified by Organization Details LastModified Time Maternal Grandmother Malignant tumor of breast [email or web address] Not available 12/12 15:13:27 Sister Diabetes mellitus [email or web address] Not available 12/12 15:13:37 Mother Essential hypertension [email or web address] Not available 13:59:12 Maternal Grandfather Malignant neoplasm of lung vschroedter Not available 12/12 15:14:08 Medical History Condition Response Allergies (Food, seasonal, environmental ) N Other N Breast Cancer N Drug/Latex Allergies/Reactions N Blood Transfusion N Dermatologic Disorders N Lung Disease N Defects or Inherited Disease N Breast Problem N Gestational Diabetes N Hematologic disorders N Anesthesia Complications N History of STI N Deep Vein Thrombosis N Polycystic ovary syndrome N Anxiety Disorder N Autoimmune disease N Arthritis N Infertility N Polyps N Acid Reflux (GERD) N History of abnormal pap N Cancer N Stroke N Varicosities N Neurologic/Epilepsy N Endometriosis N High Cholesterol N Headaches N Fibromyalgia N Kidney Disease N Heart Problems N Kidney or Bladder Problems N Thyroid Problems N GI Problems N Eating Disorder N Anemia N Art (IVF or FET) N Psychiatric Illness N Ovarian Cancer N Diabetes N Pulmonary (TB, Asthma) N Hepatitis/Liver Disease N No Past Medical History N Eczema N Urinary Tract Infection N Abuse/Domestic Violence N Asthma N Trauma/Violence N Depression/ depression N Heart Disease N Pre-Eclampsia N Hypertension N Osteoporosis N Thrombophilias N Gynecological History Statement/Question Response Abnormal Pap N Date of Last Mammogram 04/14/2024 On BCP's at Conception? N N STIs/STDs N HPV Vaccine N Current Control Method Menopause Age at First Child 29 If Post Menopausal, Age at Menopause 51 Date of Last Colonoscopy 08/19/2023 Sexually Active? Y Age of first menstrual cycle 15 Date of Last Pap Smear 01/07/2024 Sexual Problems? N LMP Unknown 08/19/2023 N Obstetrics History GPAL:G 2 P 0 0 0 2 Type Value Living 2 Total 2 Past Encounters Encounter ID Performer Location Encounter Start Date Encounter Closed Date Diagnosis/Indication Diagnosis SNOMED-CT Code Diagnosis ICD10 Code Diagnosis Note [id number] MONY Brooks [place] [address] [address] 12/30/2022 14:56:26 12/30/2022 15:44:59 Gynecologic examination [id number] Z01.419 Take Calcium with Vitamin D 12-1500mg daily. Do monthly self breast exams. It is advised to get annual flu shot in the fall and she could obtain at [facility] or [facility] care clinic. If you haven't received the Tdap vaccine in the last 10 years you should obtain one as well. Have mammogram yearly, bone density every 2-3 years and colonoscop y every 5-10 years depending on findings and history. Engage in daily exercise of low impact aerobic exercise 45-60 minutes 4-5 times weekly. Avoid tobacco and illicit drugs as well as using moderation with alcohol intake less than 1-2 8 oz beverages daily. This lifestyle behavior pattern will lead to less health conditions and longer life span. If BMI greater than 25 weight watchers or dietary consult advised. Questions have been answered. Patient appears to understand instructio ns, but if you have any further questions call or respond to this email WWEPostmen opausalLas t pap 2020 - normal per patientHx of abnormal pap years ago, no procedures required. All normal sinceHas noticed bilateral axillary tenderness for the past few months. Possible axillary lymphadeno bart on exam. We agreed to diagnostic mammogram with u/s for further evaluation .UTD with PCP, recently had routine labs. Axillary lymphadenopathy [id number] R59.0 [id number] MONY Brooks [place] [address] [address] 01/07/2024 13:58:41 01/07/2024 16:15:10 Gynecologic examination [id number] Z01.419 WWEpap updateddec lined STI screenmamm ogram order givencolon oscopy UTDdexa order givenrouti ne labs UTD/PCPRTC in 1 yr or sooner if needed Take Calcium with Vitamin D daily. Do monthly self breast exams. It is advised to get annual flu shot in the fall and she could obtain at [facility] or [facility] take care clinic. If you haven't received the Tdap vaccine in the last 10 years you should obtain one as well. Have mammogram yearly, bone density every 2-3 years and colonoscop y every 5-10 years depending on findings and history. Engage in daily exercise of low impact aerobic exercise 45-60 minutes 4-5 times weekly. Avoid tobacco and illicit drugs. This lifestyle behavior pattern will lead to less health conditions and longer life span. If BMI greater than 25 dietary consult advised. Questions have been answered. Patient appears to understand instructio ns, but if you have any further questions call or respond to this email Screening for malignant neoplasm of breast [id number] Z12.39 Screening for osteoporosis [id number] Z13.820 [id number] MONY Brooks [place] [address] [address] 01/25/2025 13:59:04 01/25/2025 15:33:53 Gynecologic examination 17074416 Z01.419 Z11.51 WWEpostmen opausalPap - UTD/not indicated todaySTI screen - declinedMa mmogram - order givenColon cancer screening - UTDDexa - recommende d, pt declined. Bone health recommenda tions discussedR outine labs - PCPRTC in 1 yr or sooner if needed Do monthly self breast exams.It is advised to get annual flu shot in the fall and she could obtain at local pharmacy. If you haven't received the Tdap vaccine in the last 10 years you should obtain one as well.Have mammogram yearly, bone density every 2-3 years and stay up to date on colon cancer screening. Engage in regular exercise. Avoid tobacco and illicit drugs. This lifestyle behavior pattern will lead to less health conditions and longer life span. If BMI greater than 25 dietary consult advised.Qu estions have been answered. Screening for malignant neoplasm of breast [id number] Z12.39 Health Concerns Section Related Observation LastModified by Organization Detai ls LastModified Time None Recorded Concern Status LastModified by Organization Details LastModified Time None Recorded Advance Directives Directive Y: Payers Insurance Date Sequence Insurance Name Policy Number Policy Reece Covered Member ID Reece Member ID Guarantor Name 01/07/2024 [facility] Cristal Montes [id number] Cristal Montes Notes Date Note Type Note Provider Name and Address Organization Details Recorded Time 023 text/ht ml Annual Campus Recruiter Post-MenopausalReported bypatient.Menopausal Symptoms:no menopausal symptoms; normal vaginal lubrication Vaginal Bleeding:history of menopause having occurred; no history of post menopausal bleeding Urinary Symptoms:no hematuria; no incontinence; no nocturia; no urinary frequency Vulva:no genital lesion; no vulvar atrophy Vagina:normal vaginal discharge; no vaginal atrophy Breast:no breast lump; no nipple discharge; no breast pain Sexual Complaints:no sexual complaints Psychological Symptoms:no depression; no anxiety Preventive Measures:encourage regular mammograms starting age 40; encourage self breast examination; encourage regular exercise; encourage no tobacco use; needs to schedule mammogram MONY Brooks [address], [place], [address], [facility] 12/30/2022 15:35:28 024 text/ht ml Annual Campus Recruiter Post-MenopausalReported bypatient.Menopausal Symptoms:no menopausal symptoms; normal vaginal lubrication Vaginal Bleeding:history of menopause having occurred; no history of post menopausal bleeding Urinary Symptoms:no hematuria; no incontinence; no nocturia; no urinary frequency Vulva:no genital lesion; no vulvar atrophy Vagina:normal vaginal discharge; no vaginal atrophy Breast:no breast lump; no nipple discharge; no breast pain Sexual Complaints:no sexual complaints Psychological Symptoms:no depression; no anxiety Preventive Measures:encourage regular mammograms starting age 40; encourage self breast examination; encourage regular exerciseNotes:WWEpap last 2020 - normalpostmenopausalmammogram last olonoscopy UTDdexa 3-4 yrs ago MONY Brooks [address], [place], [address], [facility] 01/07/2024 15:49:09 025 text/ht ml Annual Campus Recruiter Post-MenopausalReported bypatient.Menopausal Symptoms:no menopausal symptoms; normal vaginal lubrication Vaginal Bleeding:history of menopause having occurred; no history of post menopausal bleeding Urinary Symptoms:no hematuria; no incontinence; no nocturia; no urinary frequency Vulva:no genital lesion; no vulvar atrophy Vagina:normal vaginal discharge; no vaginal atrophy Breast:no breast lump; no nipple discharge; no breast pain Sexual Complaints:no sexual complaints Psychological Symptoms:no depression; no anxiety Preventive Measures:encourage regular mammograms starting age 40; encourage self breast examination; encourage regular exercise; encourage no tobacco use; mammogram performed within the past year; history of recent colonoscopyNotes:64yo wwepostmenopausallast pap 12/2023 : nilm, HPV (-)mammogram last 4colonoscopy UTD, exa last 5yrs ago MONY Brooks [address], [place], [address], [facility] 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 Status 12/31/19 23 1 CLOSED Fetus Data First Name Last Name Admitted to NICU Weight (g) Sex Living Outcome Pediatric Complications Fetus ID Race Codes Race Delivery [place] [id number] Vaginal Delivery Anuel Calculation Initial Anuel Date Initial Exam Date Initial Exam Provider Initial Ultrasound Date Last Menstrual Period Date Ultra Sound Weeks Gestation 0 Eighteen To Twenty Week Anuel Update Ultra Sound Date Fundal Height At Umbil Quickening Date Ultra Sound Latest Weeks Gestation Final Anuel Confirmed By Final Anuel Confirmed Date Final Anuel Date Ultra Sound Latest Days Gestation 0 0 Menstrual History Last Menstrual Date Menses Monthly On Bcp Conception Prior Menses Frequency Hcg Plus Date Menarche Onset Age Delivery Information Delivery Date Delivery Type Labor Anesthesia Weeks Gestation Incision Type Labor Labor Length Hrs Delivered By Post Complications Tubal Sterilization Discharge Date Comments 0 32 Discharge Information Feeding Method Contraceptive Method Maternal HG B and HCT Levels Ob Episode Information Episode Created Date Number of Fetuses Patient Bloodtype Patient rh Status Prepregnancy Weight lbs Domestic Partner Domestic Partner Phone Father Name Double Reamer Operator Status 12/31/19 23 1 CLOSED Fetus Data First Name Last Name Admitted to NICU Weight (g) Sex Living Outcome Pediatric Complications Fetus ID Race Codes Race Delivery Type M [place] [id number] Vaginal Delivery Anuel Calculation Initial Anuel Date Initial Exam Date Initial Exam Provider Initial Ultrasound Date Last Menstrual Period Date Ultra Sound Weeks Gestation 0 Eighteen To Twenty Week Anuel Update Ultra Sound Date Fundal Height At Umbil Quickening Date Ultra Sound Latest Weeks Gestation Final Anuel Confirmed By Final Anuel Confirmed Date Final Anuel Date Ultra Sound Latest Days Gestation 0 0 Menstrual History Last Menstrual Date Menses Monthly On Bcp Conception Prior Menses Frequency Hcg Plus Date Menarche Onset Age Delivery Information Delivery Date Delivery Type Labor Anesthesia Weeks Gestation Incision Type Labor Labor Length Hrs Delivered By Post Complications Tubal Sterilization Discharge Date Comments 6 32 Discharge Information Feeding Method Contraceptive Method Maternal HG B and HCT Levels
--- OUTSIDE RECORDS SUMMARY | 2025-04-26 14:33 | XMS_ITS | Referral Summary ---
Author Organization [facility] Healthcare Address [address] [place] [address] Care Team Providers Care Vice President Quality Assurance Name Role Phone Neal Galarza NP Unavailable [phone] Olivier Daniels MD Primary Care Provider [phone] Allergies Active Allergy Reactions Criticality Noted Date [...] Deficiency Prevention Take 1 tablet by mouth second language tutor before breakfast Restart on 05/07 when able to take pills whole 4 Active omega-3 fatty acids-fish oil 300-1,000 mg capsuleIndicati ons:hypertrigly ceridemia Take 1 capsule (1,000 mg total) by mouth second language tutor before breakfast Restart on 05/07 when able to take pills whole 4 Active turmeric root extract 500 mg capsuleIndicati ons:supplement Take 1 tablet by mouth second language tutor before breakfast Restart on 05/07 when able to take pills whole 4 Active Active Problems Problem Noted Date Diagnosed Date S/P laparoscopic fundoplication 12/12/2024 Assessment & Plan (12/12/2024 9:56 AM TALENT SOURCING SPECIALIST): No breatkhrought sypmtoms on fundoplication. No dysphagia. Dyspnea on exertion 12/12/2024 Assessment & Plan (12/12/2024 9:56 AM TALENT SOURCING SPECIALIST): Revuiewed multifacotrial etiology and will montior repsnose. No chest pains/pressures/palptiations. Encounter for medical examination to establish c are 12/12/2024 Assessment & Plan (12/12/2024 9:57 AM TALENT SOURCING SPECIALIST): Focus of exam is to estalbihs care. [...] 01/29/2018 Assessment & Plan (12/12/2024 9:56 AM TALENT SOURCING SPECIALIST): Stable on supportive and alternative medication to control GI syopmtomatology. Immunizations Immunization Administration Dates Next Due Influenza, Unspecified 11/30/2024(Deferr ed: Patient Refused),10/13/2023(Deferred: Patient Refused) Sars-CoV-2, Unspecified 07/26/2021,01/19/2021, Tdap 12/21/2018,10/12/2018 ZOSTER Recombinant 08/15/2021,05/10/2021 Zoster, unspecified 09/11/2021,07/12/2021 Social History Tobacco Use Types Packs/Day Years [...] on file Legal Sex Female 12:18 PM TALENT SOURCING SPECIALIST Gender Identity Not on file Sexual Orientation Not on file Last Filed Vital Signs Vital Sign Reading [...] 12/21/2024 4:17 PM CDT Plan of Treatment Not on file Procedures Procedure Name Priority Date/Time Associated Diagnosis Comments COLONOSCOPY 06/24/2023 7:45 AM CDT HM MAMMOGRAPHY Routine 01/03/2022 from Last 3 Months or Most Recently Relevant to Health Maintenance Results * COLONOSCOPY (06/24/2023 7:45 AM CDT) Anatomical Region Laterality Modality Other Narrative Procedure Note Henrietta Farley MD - 06/24/2023 7:45 AM CDT [facility] Patient Name: Cristal Montes Procedure Date: 06/24/2023 7:45 AM Date of : 1960 Admit Type: Outpatient Age: 62 Gender: Female Attending MD: Henrietta Farley M.D. Room: [facility] ENDOSCOPY ROOM 1 Note Status: Marketing Development Specialist Override Patient Profile: This is a 62 year old female. History of polypsback in 2018. No family history of colon cancer per Procedure: Colonoscopy Indications: High risk colon cancer surveillance: Personalhistory of colonic polyps, Last colonoscopy: February 2018 Referring MD: Ramya Regan M.D., Heidi Waldrop M.D. Providers: Ramesh LunaD. Impression: - One diverticulum in the ascending [...] under direct vision. The Pediatric Colonoscope PCF-H190L [id number] was introducedthrough the anus and advanced to [...] 7:45 AM Procedure Code(s): --- Professional --- 60245, Colonoscopy, flexible; diagnostic, including collection of specimen(s) by brushing or washing, when performed (separateprocedure) Diagnosis Code(s): --- Professional --- Z86.010, Personal history of colonic polyps K64.8, Other hemorrhoids K57.30, Diverticulosis of large intestine without perforation orabscess without bleeding CPT copyright 2020 [employer] [place] [employer]. All rights reserved. The codes documented in this report are preliminary and upon tanner rotary drum continuous process reviewmay be revised to meet current compliance requirements. Recognized by the [place] [employer] for promoting quality in endoscopy Henrietta Farley MD ENDOSCOPY PROCEDURES Edite d Result - Final * HM MAMMOGRAPHY (01/03/2022) Historical Provider HEALTH MAINTENANCE Final Result from Last 3 Months or Most Recently Relevant to Health Maintenance Advance Directives For more information, please contact: [phone] * Full Code (Latest Code Status on [...] 7:44 AM 06/24/2023 7:44 AM Care Teams Vice President Quality Assurance Relationship Specialty Start Date End Date [place] [address] PCP - General Family Medicine 11/30/24 Neal Galarza NP [address] [place] [address] DR GARCIA [address] [place] [id number] Nurse Practitioner Gastroenterology 01/21/24
--- OUTSIDE RECORDS SUMMARY | 2025-04-26 14:33 | XMS_ITS | Clinical Summary ---
Author Organization [facility] Administrative Offices Address [address] [place] [address] Care Team Providers Care Mobility Specialist Name Role Phone Theodore Regan MD Primary Care Provider Allergies Active Allergy Reactions Criticality Noted Date Comments Iodinated Contrast Media Anaphylaxis,Hives High 03/29/2011 Pt. States she broke out in hives and was unable to breathe when had contrast for CT Scan Social History Tobacco Use Types Packs/Day Years Used Date Smoking Tobacco: Never Assessed Comments Unknown Sex and Gender Information Value Date Recorded Sex Assigned at Not on file Legal Sex Female 6:02 AM EXPORT PACKER Gender Identity Not on file Sexual Orientation Not on file Last Filed Vital Signs Vital Sign Reading Time Taken Comments Blood Pressure - - Pulse - - Temperature - - Respiratory Rate - - Oxygen Saturation - - Inhaled Oxygen Concentration - - Weight 58.5 kg (129 lb) 03/29/2011 1:58 PM CDT Height - - Body Mass Index - - Plan of Treatment Health Maintenance Due Date Last Done Comments DTAP/TDAP/TD VACCINES (1 - Tdap) 1980 HPV/Cotest (21-29) 1982 CERVICAL CANCER SCREENING 1991 HPV/Cotest (30-65) 1991 PAP SMEAR 1991 BREAST CANCER SCREENING 2001 COLORECTAL SCREENING 2006 Colorectal Cancer Screening 2006 FIT-DNA Q 3 years 2006 FIT/FOBT Q 1 year 2006 Flex Sig/CT Colonography Q 5 years 2006 ZOSTER VACCINE (1 of 2) 2011 INFLUENZA VACCINE (#1) 2025 RSV VACCINE (60+ or ) (1 - 1-dose 75+ series) 2036 Care Teams Mobility Specialist Relationship Specialty Start Date End Date Theodore Regan MD [address] [place] [address] PCP - General Family Practice 03/26/11
--- OUTSIDE RECORDS SUMMARY | 2025-04-26 14:33 | XMS_ITS | Clinical Summary ---
Author Organization [facility] Address [address] [place] [address] Phone Care Team Providers Care Nurse Executive Name Role Phone Theodore Regan MD Primary Care Provider [phone] Allergies Active Allergy Reactions Criticality Noted Date Comments Uncaria Tomentosa (Cats Claw) Other (see Comments) 01/02/2018 Eyes get red and swell, sneezing, head congestion,CAT DANDER Codeine Other (see Comments) 01/02/2018 Dizzy, nausea Iodinated Contrast Media Hives 01/02/2018 Rapid heart rate Tobacco Other (see Comments) 01/02/2018 Closes throat Medications Multiple Vitamins-Minera ls (MULTIVITAMIN PO) Take 1 Tab by mouth 2 times daily. Active [place]-3 Fatty Acids (OMEGA 3 PO) Take by mouth. Acti ve MILK THISTLE PO Take by mouth. Active TURMERIC PO Take by mouth. Act eduardo folic acid-vit B6-vit B12 0.8-10-0.115 MG Tablet Take 1 Tab by mouth daily. Active raNITIdine (ZANTAC) 150 MG Tablet Take 2 Tabs by mouth nightly. 180 Tab 8 Active Additional Information Patient not taking.Reported on 02/11/2018 hyoscyamine (LEVSIN) 0.125 MG Tablet Take 1 Tab by mouth 2 times daily. 60 Tab 3 8 Active omeprazole (PRILOSEC) 40 MG CAPSULE DELAYED RELEASE Take 1 Cap by mouth 2 times daily. 30 Cap 3 8 Active Family History Medical History Relation Name Comments Heart Disease Father Hypertension Father Other-comment Father obesity Cancer Maternal Grandmother breast Dementia Mother Cancer Paternal Grandfather lung Diabetes Sister Relation Name Status Comments Father Alive Maternal Grandmother Mother Alive Paternal Grandfather Sister Social History Tobacco Use Types Packs/Day Years Used Date Smoking Tobacco: Never Smokeless Tobacco: Never Alcohol Use Standard Drinks/Week Comments Yes 0 (1 standard drink = 0.6 oz pur e alcohol) 2-3 glasses of wine per week Comments No Sex and Gender Information Value Date Recorded Sex Assigned at Not on file Legal Sex Female 10:53 PM CDT Gender Identity Not on file Sexual Orientation Not on file Last Filed Vital Signs Vital Sign Reading Time Taken Comments Blood Pressure 110/78 02/18/2018 12:39 PM CDT Pulse 70 02/18/2018 11:04 AM CDT Temperature 36 C (96.8 F) 02/18/2018 12:39 PM CDT Respiratory Rate 21 02/18/2018 12:39 PM CDT Oxygen Saturation 98% 02/18/2018 12:39 PM CDT Inhaled Oxygen Concentration - - Weight 68 kg (150 lb) 02/11/2018 3:00 PM CDT Height 170.2 cm (5' 7) 02/11/2018 3:00 PM CDT Body Mass Index 23.49 02/11/2018 3:00 PM CDT Plan of Treatment Health Maintenance Due Date Last Done Comments Hepatitis C Virus (HCV) Screening 1960 Pap Smear 1982 Cervical Cancer Screening (CCS) 1991 HPV/Cotest 1991 Cologuard 2006 Immunochemical Fecal Occult Blood 2006 Pneumococcal Immunization (5 0+ years) (1 of 1 - PCV) 2011 Zoster Immunization (1 of 2) 2011 Colonoscopy 02/18/2023 02/18/2018, 09/15/2009 Colorectal Cancer Screening 02/18/2023 SARS-COV-2 Immunization ( - 2023- season) 2024 07/27/2021, 01/20/2021, 12/30/2020 Influenza Immunization (#1) 2025 Respiratory Syncytial Virus (RSV) Immunization (Adult) (1 - 1-dose 75+ series) 2036 DTaP/Tdap/Td Immunization Discontinued 12/21/2018 TdaP Immunization Completed 12/21/2018 Hepatitis B Immunization Aged Out No longer eligible based on patient's age to complete this topic Human Papillomavirus (HPV) Immunization Aged Out No longer eligible based on patient's age to complete this topic Meningococcal Immunization (ACWY) Aged Out No longer eligible based on patient's age to complete this topic Rotavirus Immunization Aged Out No lo nger eligible based on patient's age to complete this topic Procedures Procedure Name Priority Date/Time Associated Diagnosis Comments COLONOSCOPY Routine 09/15/2009 from Last 3 Months or Most Recently Relevant to Health Maintenance Results * COLONOSCOPY (09/15/2009) us Not On File Provider PROCEDURE/MINOR SURGICAL OR DERABLES Final Result from Last 3 Months or Most Recently Relevant to Health Maintenance Care Teams Nurse Executive Relationship Specialty Start Date End Date Theodore Regan MD [address] [place] [address] PCP - General Family Medicine 12/26/17
--- OUTSIDE RECORDS SUMMARY | 2025-04-26 14:33 | XMS_ITS | Data Portability ---
Author Organization [facility] Carlos PKristan, [facility] Address [address] [place] [address] Assessment No assessment recorded. Plan of Treatment Reminders Order Date Submit Date Provider Last Modified By Organization Details Last Modified Time Details Appointments None recorded. Lab CBC w/ auto diff 2015 016 ROSENDA Not available 6 09:16:36 lipid panel, blood 2015 016 ROSENDA Not available 6 09:16:39 TSH + T4, serum 2015 016 rlebo Not available 6 11:10:44 CMP, serum or plasma 2015 016 ROSENDA Not available 6 09:16:38 vitamin D, 25-hydrox y, total, serum 2015 016 ROSENDA Not available 6 09:16:45 vitamin B12 + folate, serum or blood 2015 016 ROSENDA Not available 6 09:16:41 Referral None recorded. Procedures None recorded. Surgeries None recorded. Imaging None recorded. Medication Orders Silica (Silicea) 2015 016 ATHENAFAX [facility], [address] [facility], [place], [address], 6 14:12:45 Patient TargetsNo targets recorded. Patient InstructionsNo instructions recorded. Reason for Referral None Reported. Results Created Date Observation Date Name Description Value Unit Range Abnormal Flag Note LastModifiedBy Organization Detail LastModifiedTime 01/29/20 16 01/30/2016 CBC w/ auto diff WBC 6.0 x10e3 /uL 3.4-10 .8 Not Available [facility] ([facility]) [address] [place], [address], 01/30/2016 09:16:36 01/29/20 16 01/30/2016 CBC w/ auto diff RBC 4.53 x10e6 /uL 3.77-5 .28 Not Available [facility] ([facility]) [address] [place], [address], 01/30/2016 09:16:36 01/29/20 16 01/30/2016 CBC w/ auto diff hemoglobin 13.6 g/dL 11.1-1 5.9 Not Available [facility] ([facility]) [address] [facility], [place], [address], 01/30/2016 09:16:36 01/29/20 16 01/30/2016 CBC w/ auto diff hematocrit 40.7 % 34.0-4 6.6 Not Available [facility] ([facility]) [address] [facility], [place], [address], 01/30/2016 09:16:36 01/29/20 16 01/30/2016 CBC w/ auto diff MCV 90 fL 79-97 Not Available [facility] ([facility]) [address] [facility], [place], [address], 01/30/2016 09:16:36 01/29/20 16 01/30/2016 CBC w/ auto diff MCH 30.0 pg 26.6-3 3.0 Not Available [facility] ([facility]) [address] [place], [address], 01/30/2016 09:16:36 01/29/20 16 01/30/2016 CBC w/ auto diff MCHC 33.4 g/dL 31.5-3 5.7 Not Available [facility] ([facility]) [address] [place], [address], 01/30/2016 09:16:36 01/29/20 16 01/30/2016 CBC w/ auto diff RDW 13.2 % 12.3-1 5.4 Not Available [facility] ([facility]) [address] [facility], [place], [address], 01/30/2016 09:16:36 01/29/20 16 01/30/2016 CBC w/ auto diff platelets 301 x10e3 /uL 150-37 9 Not Available [facility] ([facility]) [address] [facility], [place], [address], 01/30/2016 09:16:36 01/29/20 16 01/30/2016 CBC w/ auto diff neutrophils 61 % Not Available [facility] ([facility]) [address] [place], [address], 01/30/2016 09:16:36 01/29/20 16 01/30/2016 CBC w/ auto diff lymphs 27 % Not Available [facility] ([facility]) [address] [place], [address], 01/30/2016 09:16:36 01/29/20 16 01/30/2016 CBC w/ auto diff monocytes 8 % Not Available [facility] ([facility]) [address] [facility], [place], [address], 01/30/2016 09:16:36 01/29/20 16 01/30/2016 CBC w/ auto diff eos 4 % Not Available [facility] ([facility]) [address] [place], [address], 01/30/2016 09:16:36 01/29/20 16 01/30/2016 CBC w/ auto diff basos 0 % Not Available [facility] ([facility]) [address] [place], [address], 01/30/2016 09:16:36 01/29/20 16 01/30/2016 CBC w/ auto diff immature cells LOBBY ATTENDANT Not Available [facility] ([facility]) [address] [place], [address], 01/30/2016 09:16:36 01/29/20 16 01/30/2016 CBC w/ auto diff neutrophils (absolute) 3.6 x10e3 /uL 1.4-7. 0 Not Available [facility] ([facility]) [address] [place], [address], 01/30/2016 09:16:36 01/29/20 16 01/30/2016 CBC w/ auto diff lymphs (absolute) 1.6 x10e3 /uL 0.7-3. 1 Not Available [facility] ([facility]) [address] [place], [address], 01/30/2016 09:16:36 01/29/20 16 01/30/2016 CBC w/ auto diff monocytes(ab solute) 0.5 x10e3 /uL 0.1-0. 9 Not Available [facility] ([facility]) [address] [place], [address], 01/30/2016 09:16:36 01/29/20 16 01/30/2016 CBC w/ auto diff eos (absolute) 0.2 x10e3 /uL 0.0-0. 4 Not Available [facility] ([facility]) [address] [place], [address], 01/30/2016 09:16:36 01/29/20 16 01/30/2016 CBC w/ auto diff baso (absolute) 0.0 x10e3 /uL 0.0-0. 2 Not Available [facility] ([facility]) [address] [place], [address], 01/30/2016 09:16:36 01/29/20 16 01/30/2016 CBC w/ auto diff immature granulocytes 0 % Not Available [facility] ([facility]) [address] [place], [address], 01/30/2016 09:16:36 01/29/20 16 01/30/2016 CBC w/ auto diff immature grans (abs) 0.0 x10e3 /uL 0.0-0. 1 Not Available [facility] ([facility]) [address] [place], [address], 01/30/2016 09:16:36 01/29/20 16 01/30/2016 CBC w/ auto diff NRBC LOBBY ATTENDANT Not Available [facility] ([facility]) [address] [place], [address], 01/30/2016 09:16:36 01/29/20 16 01/30/2016 CBC w/ auto diff hematology comments: LOBBY ATTENDANT Not Available [facility] ([facility]) [address] [place], [address], 01/30/2016 09:16:36 01/29/20 16 01/30/2016 CMP, serum or plasm a glucose, serum 88 mg/dL 65-99 Not Available [facility] ([facility]) [address] [place], [address], 01/30/2016 09:16:38 01/29/20 16 01/30/2016 CMP, serum or plasm a BUN 11 mg/dL 6-24 Not Available [facility] ([facility]) [address] [place], [address], 01/30/2016 09:16:38 01/29/20 16 01/30/2016 CMP, serum or plasm a creatinine, serum 0.68 mg/dL 0.57-1 .00 Not Available [facility] ([facility]) [address] [place], [address], 01/30/2016 09:16:38 01/29/2001/30/2016 CMP, serum or plasm a eGFR if nonafricn AM 99 mL/mi n/1.7 3 >59 Not Available [facility] ([facility]) [address] [place], [address], 01/30/2016 09:16:38 01/29/20 16 01/30/2016 CMP, serum or plasm a eGFR if africn AM 115 mL/mi n/1.7 3 >59 Not Available [facility] ([facility]) [address] [place], [address], 01/30/2016 09:16:38 01/29/20 16 01/30/2016 CMP, serum or plasm a BUN/creatini ne ratio 16 9-23 Not Available [facility] ([facility]) [address] [place], [address], 01/30/2016 09:16:38 01/29/20 16 01/30/2016 CMP, serum or plasm a sodium, serum 136 mmol/ L 134-14 4 Not Available [facility] ([facility]) [address] [place], [address], 01/30/2016 09:16:38 01/29/2001/30/2016 CMP, serum or plasm a potassium, serum 4.4 mmol/ L 3.5-5. 2 Not Available [facility] ([facility]) [address] [place], [address], 01/30/2016 09:16:38 01/29/20 16 01/30/2016 CMP, serum or plasm a chloride, serum 98 mmol/ L 97-108 Not Available [facility] ([facility]) [address] [place], [address], 01/30/2016 09:16:38 01/29/2001/30/2016 CMP, serum or plasm a carbon dioxide, total 25 mmol/ L 18-29 Not Available [facility] ([facility]) [address] [place], [address], 01/30/2016 09:16:38 01/29/20 16 01/30/2016 CMP, serum or plasm a calcium, serum 9.6 mg/dL 8.7-10 .2 Not Available [facility] ([facility]) [address] [place], [address], 01/30/2016 09:16:38 01/29/2001/30/2016 CMP, serum or plasm a protein, total, serum 7.0 g/dL 6.0-8. 5 Not Available [facility] ([facility]) [address] [place], [address], 01/30/2016 09:16:38 01/29/2001/30/2016 CMP, serum or plasm a albumin, serum 4.6 g/dL 3.5-5. 5 Not Available [facility] ([facility]) [address] [place], [address], 01/30/2016 09:16:38 01/29/2001/30/2016 CMP, serum or plasm a globulin, total 2.4 g/dL 1.5-4. 5 Not Available [facility] ([facility]) [address] [place], [address], 01/30/2016 09:16:38 01/29/2001/30/2016 CMP, serum or plasm a A/G ratio 1.9 1.1-2. 5 Not Available [facility] ([facility]) [address] [place], [address], 01/30/2016 09:16:38 01/29/2001/30/2016 CMP, serum or plasm a bilirubin, total 0.9 mg/dL 0.0-1. 2 Not Available [facility] ([facility]) [address] [place], [address], 01/30/2016 09:16:38 01/29/2001/30/2016 CMP, serum or plasm a alkaline phosphatase, S 60 IU/L 39-117 Not Available [facility] ([facility]) [address] [place], [address], 01/30/2016 09:16:38 01/29/20 16 01/30/2016 CMP, serum or plasm a AST (SGOT) 20 IU/L 0-40 Not Available [facility] ([facility]) [address] [place], [address], 01/30/2016 09:16:38 01/29/20 16 01/30/2016 CMP, serum or plasm a ALT (SGPT) 18 IU/L 0-32 Not Available [facility] ([facility]) [address] [facility], [place], [address], 01/30/2016 09:16:38 01/29/20 16 01/30/2016 lipid panel , serum cholesterol, total 210 mg/dL 100-19 9 above high normal Not Available [facility] ([facility]) [address] [place], [address], 01/30/2016 09:16:39 01/29/20 16 01/30/2016 lipid panel , serum triglyceride s 106 mg/dL 0-149 Not Available [facility] ([facility]) [address] [place], [address], 01/30/2016 09:16:39 01/29/2001/30/2016 lipid panel , serum HDL cholesterol 101 mg/dL >39 ACCOR DING TO ATP-I II GUIDE LINES , HDL-C >59 MG/DL IS CONSI DERED A NEGAT BOBBY RISK FACTO R FOR CHD. Not Available [facility] ([facility]) [address] [place], [address], 01/30/2016 09:16:39 01/29/2001/30/2016 lipid panel , serum VLDL cholesterol roscoe 21 mg/dL 5-40 Not Available [facility] ([facility]) [address] [place], [address], 01/30/2016 09:16:39 01/29/20 16 01/30/2016 lipid panel , serum LDL cholesterol calc 88 mg/dL 0-99 Not Available [facility] ([facility]) [address] [place], [address], 01/30/2016 09:16:39 01/29/20 16 01/30/2016 lipid panel , serum comment: LOBBY ATTENDANT Not Available [facility] ([facility]) [address] [facility], [place], [address], 01/30/2016 09:16:39 01/29/20 16 01/30/2016 vitam in B12 + folat e, serum or blood vitamin B12 >2000 pg/mL 211-94 6 above high normal Not Available [facility] ([facility]) [address] [facility], [place], [address], 01/30/2016 09:16:41 01/29/20 16 01/30/2016 vitam in B12 + folat e, serum or blood folate (folic acid), serum 18.2 NG/mL >3.0 A SERUM FOLAT E EVELYN NTRAT ION OF LESS THAN 3.1 NG/ML IS CONSI DERED TO REPRE SENT CLINI ROSCOE DEFIC IENCY . Not Available [facility] ([facility]) [address] [facility], [place], [address], 01/30/2016 09:16:41 01/29/20 16 01/30/2016 TSH, serum or plasm a TSH 2.480 uIU/m L 0.450- 4.500 Not Available [facility] ([facility]) [address] [facility], [place], [address], 01/30/2016 09:16:42 01/29/2001/30/2016 T4, free, serum T4,free(dire ct) 1.11 NG/dL 0.82-1 .77 Not Available [facility] ([facility]) [address] [place], [address], 01/30/2016 09:16:44 01/29/20 16 01/30/2016 vitam in D, 25-hy droxy , total , serum vitamin D, 25-hydroxy 25.1 NG/mL 30.0-1 00.0 below low normal VITAM IN D DEFIC IENCY HAS BEEN DEFIN ED BY THE INSTI TUTE OF MEDIC INE AND AN ENDOC RINE SOCIE TY PRACT ICE GUIDE LINE A LEVEL OF SERUM 25-OH VITAM IN D LESS THAN 20 NG/ML (1,2) . THE ENDOC RINE SOCIE TY WENT ON TO FURTH ER DEFIN E VITAM IN D INSUF FICIE NCY A LEVEL BETWE EN 21 AND 29 NG/ML (2). 1. IOM (INST ITUTE OF MEDIC INE). 2009. DIETA RY REFER ENCE INTAK ES FOR CALCI UM AND D. KELSY CASAS DC: THE [facility] PRESS . 2. SHERRY Bui MF, RADHA GÓMEZ NC, ZACH OFF-F NAWAF I FLYNN, ET AL. EVALU ATION , TREAT MENT, AND PREVE NTION OF VITAM IN D DEFIC IENCY : AN ENDOC RINE SOCIE TY CLINI ROSCOE PRACT ICE GUIDE LINE. JCEM. 2010; 96(7) :1911 -30. Not Available [facility] ([facility]) [address] [facility], [place], [address], 01/30/2016 09:16:45 Result Notes None recorded. Problems Name Problem SNOMED Code Status Onset Date Resolution Date Notes Provider Name and Address Organization Details Recorded Time Eczema 25750026 Active Brown Sabillon MD [address] [place], [address] , [facility] 6 13:50:13 Dysfunction of eustachian tube 32160375 Active Brown Sabillon MD [address] [place], [address] , [facility] 6 13:50:13 Menopause present [id number] Inga Sabillon MD [address] [place], [address] , [facility] 6 13:50:13 Intolerant of cold 26429058 Active Brown Sabillon MD [address] [place], [address] , [facility] 6 13:50:13 Weight gain 7904860 Active Brown Sabillon MD [address] [place], [address] , [facility] 6 13:50:13 Contusion 184212959 Active Brown Sabillon MD [address] [place] [address], [address] , [facility] 6 13:50:13 Abrasion 113315196 Active Brown Sabillon MD [address] [place] [address], [address] , [facility] 6 13:50:13 Fatigue 64583979 Active Brown Sabillon MD [address] [place] [address], [address] , [facility] 6 13:50:13 Problem Notes None recorded. Medical Equipment None Reported. Allergies Allergen ID Allergen Name Allergen Category Reaction Reaction Severity Criticality Documentation Date Start Date Code Code System Note Provider Name and Address Organization Details Recorded Time 93316 codeine medicatio n Not available Not available Not available 01/29/[address] [facility] 6 12:22:06 Medications Name Sig Start Date Stop Date Status Note LastModified by Organization Details LastModified Time Silica (Silicea) 200 1m 2d; 12x 3 bid 01/29/20 16 active Not Available Not Available Not Avai lable clotrimazol e-betametha sone 1 %-0.05 % topical cream active Not Available Not Available Not Available Daily Vitamins for Women active Not Available Not Available No t Available Vitals Date Recorded Heart rate Body weight Body mass index (BMI) Body height Systolic And Diastolic Provider Name and Address Organization Details Last Updated DateTime 01/29/2016 60 /min 72602.86 4332 g 23.2 kg/m2 167.64 cm 109/69 mm[Hg] [facility] 01/29/2016 12:20:37 Social History Question Answer Notes LastModified by Organizat ion Details LastModified Time Tobacco Smoking Status Never Smoker [facility] 01/29/2016 12:13:59 Do You Have An Advance Directive? No Information not available 01/29/2016 Animal Exposure? Yes Informat ion not available 01/29/2016 Do You Wear A Helmet When Biking? Yes Information not available 01/29/2016 Is Blood Transfusion Acceptable In An Emergency? Yes Information not available 01/29/2016 What Is Your Level Of Caffeine Consumption? Occasional Information not available 01/29/2016 How Much Tobacco Do You Chew? None Information not available 01/29/2016 What Type Of Lumber Sorter Do You Use? None Information not available 01/29/2016 Are You Deaf Or Do You Have Serious Difficulty Hearing? No Information not available 01/29/2016 What Type Of Diet Are You Following? REGULAR Information not available 01/29/2016 Which Illicit Or Recreational Drugs Have You Used? No Information not available 01/29/2016 Education 2 Year College Informatio n not available 01/29/2016 Have There Been Any Changes To Your Family Or Social Situation? No Information not available 01/29/2016 What Is The Fluoride Status Of Your Home? Fluoridated Information not available 01/29/2016 Are There Any Guns Present In Your Home? Yes Information not available 01/29/2016 Hard Of Hearing Or Deaf In One Or Both Ears? No Information not available 01/29/2016 Single Or Multi-level Home/work? Multi Level Home Information not available 01/29/2016 What Is Your Home Situation? Other Information not available 01/29/2016 Do You Use Insect Repellent Routinely? No Information not available 01/29/2016 Legally Blind In One Or Both Eyes? No Information not available 01/29/2016 Live Alone Or With Others? With Others Information not available 01/29/2016 Marital Status Informatio n not available 01/29/2016 Mosquito Repellent Used Routinely No Information not available 01/29/2016 How Many Children Do You Have? 2 Information not available 01/29/2016 What Is Your Parents' Marital Status? Information not available 01/29/2016 Performs Monthly Self-breast Exam? No Information not available 01/29/2016 Pool Exposure Yes Information not available 01/29/2016 Do You Use Protection During Sex? Always Information not available 01/29/2016 What Is The Name Of Your School? No Information not available 01/29/2016 Do You Use Your Seat Belt Or Car Seat Routinely? Yes Information not available 01/29/2016 Seat Belts Used Routinely Yes Information not available 01/29/2016 Are You Sexually Active? Yes Information not available 01/29/2016 Number Of Sexual Partners 1 Information not available 01/29/2016 Do You Have Any Siblings? One Brother Information not available 01/29/2016 Smoke Alarm In Home Yes Information not available 01/29/2016 Do You Have Smoke And Carbon Monoxide Detectors In Your Home? Yes Information not available 01/29/2016 Are You Passively Exposed To Smoke? No Information not available 01/29/2016 How Much Tobacco Do You Smoke? No Information not available 01/29/2016 What Types Of Sporting Activities Do You Participate In? Bike Riding, Walking,dancing Information not available 01/29/2016 General Stress Level High Information not available 01/29/2016 Do You Use Sunscreen Routinely? Yes Information not available 01/29/2016 Do You Have Difficulty Walking Or Climbing Stairs? No Information not available 01/29/2016 Work Related Injury? No Information not available 01/29/2016 Year In School College Informatio n not available 01/29/2016 Sex: Unknown Functional Status Question Answer Note LastModified by Organizat ion Details LastModified Time What is your level of alcohol consumption? Occasional Information not available 01/29/2016 Are you currently employed? Yes Information not available 01/29/2016 Do you have difficulty doing errands alone? No Information not available 01/29/2016 What is your occupation? No matches found Information not available 01/29/2016 Do you have difficulty dressing or bathing? No Information not available 01/29/2016 What is your exercise level? Moderate Information not available 01/29/2016 Mental Status Question Answer Note LastModified by Organization D etails LastModified Time Do you have difficulty concentrating, remembering or making decisions? Yes Information no t available 01/29/2016 Family History Relationship Description Onset Age of this Age Resolved Age Notes LastModified by Organization Details LastModified Time Sister Type 1 diabetes mellitus 11 39 diabet ic compli cation s cwessling Not available 01/29/2016 12:58:33 Maternal Grandmother Malignant tumor of breast cwessling Not available 2015 13:42:16 Mother Dementia cwessling Not availabl e 01/29/2016 13:42:16 Mother Addiction analge sic cwessling Not available 01/29/2016 13:42:16 Father Morbid obesity cwessling Not available 2015 13:42:16 Medical History Condition Response Coronary Artery Disease N Gout N Kidney Stones N Blood Diseases N Hyperthyroidism N Depression N COPD N Hypothyroidism N Developmental or Behavioral Disorders N Anxiety Disorder N Muscle, Joint, or Bone Problems N Vision or Eye Problems N Arthritis N Head Injury/Concussion N Congenital Anomalies N Cancer N Stroke N ADHD N Bladder or Kidney Problems N Hospital Admission other than N High Cholesterol N Liver Disease N Fibromyalgia N Headaches N Kidney Disease N Ear or Hearing Problems N Thyroid Problems N Skin Problems Y Anemia N Constipation N Mental Illness N Diabetes N Bedwetting N Heart Problems/Murmur N Seizures/Epilepsy N Tuberculosis N Diverticulitis N Asthma N Allergies N Reflux/GERD N Heart Disease N Pulmonary Embolism N Hypertension N Chicken Pox N Autism Spectrum Disorder (ASD) N Osteoporosis N Gynecological HistoryNo gynecological history recorded. Obstetrics History GPAL:G 0 P 0 0 0 0 Past Encounters Encounter ID Performer Location Encounter Start Date Encounter Closed Date Diagnosis/Indication Diagnosis SNOMED-CT Code Diagnosis ICD10 Code Diagnosis Note [id number] Brown Sabillon MD Main Office [address] [place] [address] 01/29/2016 12:13:01 01/29/2016 14:22:06 Eczema 59467604 L30.9 Dysfunctio n of eustachian tube 93004936 H69.93 Menopause present 869862 006 N95.1 Intolerant of cold 35165 000 R68.89 Weight gain 8334355 R63. 5 Contusion 134311862 T14. 8 Abrasion 322256145 S40.2 19D Fatigue 68181945 R53.83 Health Concerns Section Related Observation LastModified by Organization Detai ls LastModified Time None Recorded Concern Status LastModified by Organization Details LastModified Time None Recorded Advance Directives Directive N: Payers Insurance Date Sequence Insurance Name Policy Number Policy Erece Covered Member ID Reece Member ID Guarantor Name 05/03/2016 1 [facility] [id number] Ottoniel Karmen Montes [id number] Cristal Montes Notes Date Note Type Note Provider Name and Address Organization Details Recorded Time 01/29/2016 text/html Get established. Mostly healthy person. But energy low wears out easily. Falls asleep easily. Fell tripped over rubber mat 6 days ago landed L knee ribs. drove self home did not receive emergency care. Saw Chiropractor Gretchen Pulido. Feels is recovering now. A few skin issues: Eruption L index finger dorsally over MCP joint. treats tofically with Neosporin or essential oils. Exfoliation inside R ear above tragus - had acupressure tack placed there 2 years ago - helped by lotrisone cream but comes back every two weeks or so. Puffiness under eyes - allergic to cats and cigarettes - eyes swell when touched by the dander. LMP 2009 - failed endometrial ablation 2003. Does not take hormones now. Hot flashes resolved. Sexual function is good. 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 22 years - is biologic father of second child and adopted first child after that father abandoned the family. lives in [place] [facility] looking to move to [facility]. 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 Enjoys swing dancing. ears always feel clogged - feels pop when pulls ear lobe which relieves that feeling, then has moisture on q tip. Talks loudly. Perhaps not hearing as clearly. Not had wax problems in past. Weakness when misses meals. Perhaps hypoglycemic. Recent 10 lb weight loss - determined to lose again - gym and diet - going in the right direction. Loves heat dislikes cold. Neck and shoulder tension - gets acupuncture >Curcumin >acupuncture. Craves salt. Cholesterol always low. Brown Sabillon MD [address] [place], [address], [facility] 01/29/2016 13:50:29 OBGyn Episode No OBEpisode recorded.
--- OUTSIDE RECORDS SUMMARY | 2025-04-26 14:34 | XMS_ITS | Encounter Summary ---
Author Organization [facility] Facility Care Team Providers Care Snuff Maker Name Role Phone Heidi Waldrop MD Primary Care Provider [phone]- [phone] Neal Galarza CHAINSTITCH PANTS OUTSEAMER Unavailable [phone] Olivier Daniels MD Primary Care Provider [phone] Encounter Details Date Type Department Care Team (Latest Contact Info) Description 01/26/2018 Orders Only [facility] CLINCONV ProviderBette MD [address] [place] [id number] Social History Tobacco Use Types Packs/Day Years Used Date Smoking Tobacco: Never Assessed Comments Unknown Sex and Gender Information Value Date Recorded Sex Assigned at Not on file Legal 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 Historical Provider [facility] Final Result * CARDIOLOGY REPORT (01/28/2018 12:00 AM CDT) Anatomical Region Laterality Modality Other Narrative 01/28/2018 12:00 AM CDT Ordered by an unspecified provider. us Historical Provider [facility] Final Result documented in this encounter Visit Diagnoses Not on filedocumented in this encounter Care Teams Snuff Maker Relationship Specialty Start Date End Date Heidi Waldrop MD PCP - General Internal Medicine 07/28/23 11/29/24 Olivier Daniels MD [address] [place] [address] PCP - General Family Medicine 11/30/24 Neal Galarza NP [address] [place] [address] [place] [address] Nurse Practitioner Gastroenterology 01/21/24 documented as of this encounter
--- OUTSIDE RECORDS SUMMARY | 2025-04-26 14:34 | XMS_ITS | Encounter Summary ---
Author Organization 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 Name Role Phone Heidi Waldrop MD Primary Care Provider [phone]- [phone] Neal Galarza WHEEL ALIGNER Unavailable [phone] Olivier Daniels MD Primary Care Provider [phone] Encounter Details Date Type Department Care Team (Latest Contact Info) Description 02/04/2018 Orders Only [facility] CLINCONV ProviderBette MD [address] [place] [address] Social History Tobacco Use Types Packs/Day Years Used Date Smoking Tobacco: Never Assessed Comments Unknown Sex and Gender Information Value Date Recorded Sex Assigned at Not on file Legal 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 Historical Provider [facility] Final Result * CARDIOLOGY REPORT (02/04/2018 12:00 AM CDT) Anatomical Region Laterality Modality Other Narrative 02/04/2018 12:00 AM CDT Ordered by an unspecified provider. us Historical Provider [facility] Final Result documented in this encounter Visit Diagnoses Not on filedocumented in this encounter Care Teams Oil Spraying Machine Operator Relationship Specialty Start Date End Date Heidi Waldrop MD PCP - General Internal Medicine 07/28/23 11/29/24 Olivier Daniels MD [address] [place] [address] PCP - General Family Medicine 11/30/24 Neal Galarza NP [address] [place] [address] [place] [address] Nurse Practitioner Gastroenterology 01/21/24 documented as of this encounter
== END 2025-04-26 14:29 | disposition home or self-care (01) ==
LOC: ANHIMG 14:31
PROVIDERS: PCP Family Medicine; Visit Provider Nurse Practitioner
DX: Z12.31 Encounter for screening mammogram for malignant neoplasm of breast (principal)
CPT/HCPCS: 77063; 77067

== ENCOUNTER 2025-09-28 09:25 | Outpatient (CLI) | payer SELFPAY ==
--- NOTE | ~2025-09-28 | CT_ITS ---
EXAMINATION: CT abdomen pelvis wo con, 09/28/2025 9:36 MEDICAL OFFICE TECHNICIAN HISTORY: Abdominal distention and bloating, weight gain COMPARISON: No comparisons available. TECHNIQUE: CT scan of the abdomen and pelvis was performed without IV contrast. One or more of the following dose reduction techniques were used: automated exposure control, adjustment of the mA and/or kV according to patient size, use of iterative reconstruction technique. Unless otherwise stated, incidental findings do not require dedicated follow up imaging FINDINGS: CT abdomen: LUNG BASES: The lung bases are clear. The visualized portions of the heart and pericardium are unremarkable. LIVER: Moderate hepatic steatosis. SPLEEN: Unremarkable, no splenomegaly. KIDNEYS: Right Kidney: Right kidney superior pole simple cyst 2 x 2 cm. Left Kidney: Unremarkable. No calculi. No hydronephrosis ADRENAL GLANDS: Right adrenal lesion measures 2.6 x 2.5 cm probable benign adrenal adenoma however there is an area of nodularity noted incompletely characterized. PANCREAS: Unremarkable. GALLBLADDER/BILIARY: Unremarkable. No biliary dilatation. STOMACH AND ESOPHAGUS: Visualized stomach and esophagus within normal limits. BOWEL/MESENTERY: Moderate fecal content. No colitis or diverticulitis. Appendix prominent but there is no periappendiceal inflammation identified. Mesentery normal. No thickened or dilated loops of small bowel. ADENOPATHY/RETROPERITONEUM: No lymphadenopathy. AORTA/VASCULATURE: Normal caliber aorta. FREE FLUID OR FREE AIR: No free fluid.. CT pelvis: SOLID ORGANS/REPRODUCTIVE: Unremarkable. BLADDER: Within normal limits. OSSEOUS STRUCTURES: There is a levoconvex scoliosis of the thoracolumbar spine. OVERLYING SOFT TISSUES: Unremarkable. IMPRESSION: 1. No acute intra-abdominal process. 2. Right adrenal lesion incompletely evaluated. Adrenal MRI is recommended to assess Reviewed, dictated and finalized at location P. CAL OFFICE TECHNICIAN IMPRESSION: 1. No acute intra-abdominal process. 2. Right adrenal lesion incompletely evaluated. [facility]
== END 2025-09-28 09:26 | disposition home or self-care (01) ==
PROVIDERS: PCP Family Medicine; Visit Provider Family Medicine
DX: R14.0 Abdominal distension (gaseous) (principal)
CPT/HCPCS: 74176